=== PATIENT | female | born 1990 | race Two or more races ===

== ENCOUNTER 2017-04-02 18:46 | Emergency (ER) | payer OTHER ==
[~2017-04-02] VITALS: Ht 170.2 cm; Wt 90.7 kg
[2017-04-02 19:27] VITALS: BP 132/70
[2017-04-02] MEDS ORDERED: ALBUTEROL FS 2.5 MG/3 ML VIAL.NEB NEB ONE (20:00)
[2017-04-02] MEDS ORDERED: IPRATROPIUM NEB FS 0.5 MG/2.5 ML AMPUL.NEB NEB ONE (20:00)
[2017-04-02] MEDS ORDERED: predniSONE 20 MG TABLET PO ONE (20:00)
[2017-04-02] MEDS ORDERED: predniSONE 20 MG TABLET ONE (20:01)
[2017-04-02] MEDS ORDERED: IPRATROPIUM NEB FS 0.5 MG/2.5 ML AMPUL.NEB ONE (20:05)
[2017-04-02] MEDS ORDERED: ALBUTEROL FS 2.5 MG/0.5 ML VIAL.NEB ONE (20:05)
--- NOTE | 2017-04-02 20:05 | NUR ---
PT REC'D MED ORDERED. PT AMBULATED TO THE BATHROOM WITH A STEADY GAIT. VSS.
== END 2017-04-02 21:23 | disposition home or self-care (01) ==
LOC: ER 18:48
DX: J45.901 Unspecified asthma with (acute) exacerbation (principal); J06.9 Acute upper respiratory infection, unspecified
CPT/HCPCS: A4606; Z7610

== ENCOUNTER 2018-10-22 19:40 | Emergency (ER) | payer MEDICAID, OTHER ==
[2018-10-22] MEDS ORDERED: IBUPROFEN 600 MG TABLET PO ONE ×2 (20:28→20:30)
[2018-10-22] MEDS ORDERED: IV NS 0.9% 1,000 ML BAG IV ONE ×2 (20:30→22:30)
[2018-10-22] MEDS ORDERED: ALBUTEROL FS 2.5 MG/3 ML VIAL.NEB ONE (20:48)
[2018-10-22] MEDS ORDERED: IPRATROPIUM NEB FS 0.5 MG/2.5 ML AMPUL.NEB ONE (20:48)
[2018-10-22] MEDS ORDERED: ALBUTEROL FS 2.5 MG/3 ML VIAL.NEB NEB ONE (21:00)
[2018-10-22] MEDS ORDERED: IPRATROPIUM NEB FS 0.5 MG/2.5 ML AMPUL.NEB NEB ONE (21:00)
[2018-10-22] MEDS ORDERED: IOHEXOL-300 100 ML VIAL IV ONE (21:31)
[2018-10-22] MEDS ORDERED: IV NS 0.9% 250 ML IV ONE (21:31)
[2018-10-22] MEDS ORDERED: CT SWABBABLE VALVE TRANS SET 1 EA INFUS.SET MC ONE (21:31)
[2018-10-22] MEDS ORDERED: ACETAMINOPHEN ES 500 MG TABLET PO ONE (22:30)
[2018-10-22] MEDS ORDERED: AZITHROMYCIN 250 MG TABLET PO ONE (22:30)
[2018-10-22] MEDS ORDERED: CEFTRIAXONE 1GM BAG (ER ONLY) 1 GM/50 ML PIGGYBACK IV ONE (22:30)
[2018-10-22] MEDS ORDERED: CEFTRIAXONE 1GM BAG (ER ONLY) 50 ML IV ONE (22:33)
[2018-10-22] MEDS ORDERED: AZITHROMYCIN 250 MG TABLET ONE (22:34)
[2018-10-22] MEDS ORDERED: ACETAMINOPHEN ES 500 MG TABLET ONE (22:34)
== END 2018-10-22 23:48 | disposition home or self-care (01) ==
DX: R50.9 Fever, unspecified (principal); R10.31 Right lower quadrant pain; T36.0X5A Adverse effect of penicillins, initial encounter; J18.9 Pneumonia, unspecified organism; R11.10 Vomiting, unspecified; J45.909 Unspecified asthma, uncomplicated; Z60.2 Problems related to living alone; Y92.89 Other specified places as the place of occurrence of the external cause
CPT/HCPCS: 36415; 71045; 74177; 80048; 80076; 81001; 83605; 84145; 84484; 84703; 85025; 85730; 87040 ×2; 87086; 96361; 96365; 99284; J0696; J7030 ×2; J7050; Q9967

== ENCOUNTER 2020-07-02 23:10 | Emergency (ER) | payer OTHER ==
[~2020-07-02] VITALS: Ht 172.7 cm; Wt 107.0 kg
[2020-07-02 23:10] VITALS: BP 132/68
--- NOTE | 2020-07-02 23:19 | NUR ---
[facility] AMBULATORY C/C OF LOWER EXTREMITIES PAIN LEFT GREATER THAN RIGHT PT IS AA/O X4, BREATHING EVEN AND UNLABORED, PAIN LVL 8/10, IBUPROFEN LAST TAKEN AT 2200 PER PATIENT, WILL CONT TO MONITOR
[2020-07-02] MEDS: IBUPROFEN 400 MG TABLET PO ONE (23:21)
--- NOTE | 2020-07-02 23:36 | NUR ---
RADIOLOGY AT BEDSIDE
[2020-07-02] MEDS ORDERED: IBUP-1955 PO (23:47)
--- NOTE | 2020-07-02 23:50 | NUR ---
Patient discharged to home in stable condition. Written and verbal after care instructions given. Patient verbalizes understanding of instruction. Pt ambulatory w/ steady gait.
== END 2020-07-02 23:53 | disposition home or self-care (01) ==
LOC: ER 23:16
DX: M25.462 Effusion, left knee (principal); J45.909 Unspecified asthma, uncomplicated; Z60.2 Problems related to living alone
CPT/HCPCS: 73564-TC

== ENCOUNTER 2021-05-04 19:22 | Emergency (ER) | payer OTHER ==
[~2021-05-04] VITALS: Ht 172.7 cm; Wt 102.1 kg
[~2021-05-04 19:22] MED LIST: IBUP-1955 PO
--- NOTE | 2021-05-04 19:53 | NUR ---
TO ER BED 9. [facility] C/O LEFT KNEE PAIN FOR THE PAST 2 MONTHS, DENIES ANY TRAUMA, LEFT WRIST PAIN AND NUMBNESS X 3 DAYS. NO DEFORMITY OR SWELLING NOTED. AWAITING MD ROCHA.
[2021-05-04] MEDS ORDERED: KETOROLAC TROMETHAMINE INJ 60 MG/2 ML VIAL IM ONE (20:00)
[2021-05-04] MEDS ORDERED: KETOROLAC TROMETHAMINE INJ 30 MG/ML VIAL ONE (20:04)
--- NOTE | 2021-05-04 20:09 | NUR ---
URINE SAMPLE COLLECTED AND SENT TO LAB
--- NOTE | 2021-05-04 22:08 | NUR ---
Patient discharged to home in stable condition. Written and verbal after care instructions given. Patient verbalizes understanding of instruction.
[2021-05-04 22:09] VITALS: BP 145/70
== END 2021-05-04 22:09 | disposition home or self-care (01) ==
LOC: ER 19:29
DX: M25.562 Pain in left knee (principal); M25.532 Pain in left wrist; J45.909 Unspecified asthma, uncomplicated; Z60.2 Problems related to living alone; Z79.1 Long term (current) use of non-steroidal anti-inflammatories (NSAID)
CPT/HCPCS: 29125; 73110; 73564; 84703; 96372; 99284; J1885